=== PATIENT | male | born 1980 | race Caucasian/White ===

== ENCOUNTER 2017-12-25 12:35 | Inpatient (IN) | payer BC ==
[~2017-12-25] VITALS: Ht 165.1 cm; Wt 81.6 kg
--- NOTE | ~2017-12-25 | OP ---
PATIENT NAME: POLI PHILIPPE MEDICAL RECORD: [id number] :76 LOCATION:D. [id number] ADMISSION DATE:12/25/17 SURGEON: AYANA GIBBONS MD DATE OF OPERATION: 12/27/2017 SURGEON: Ayana Gibbons MD PREOPERATIVE DIAGNOSIS: Right lower extremity cellulitis and abscess. POSTOPERATIVE DIAGNOSIS: Right lower extremity cellulitis and abscess. PROCEDURE PERFORMED: Incision and drainage of multiloculated complex abscess, 10 x 6 x 4 cm. ANESTHESIA: MAC. COMPLICATIONS: None. SPECIMENS: Anaerobic and aerobic cultures. WOUND CLASS: Grossly contaminated. ESTIMATED BLOOD LOSS: Minimal. OPERATIVE COURSE: After consent was obtained, the patient was taken to the operating room and placed in supine position on the operating table. Timeout was taken to confirm the correct patient and procedure. Anesthesia was provided. The right lower extremity was prepped and draped in typical sterile fashion. Local anesthetic was administered over the area of fluctuance. The skin was excised approximately 6 cm with a 15 blade scalpel. Immediately upon that, approximately 150 cc of purulent material was expressed from the wound. Anaerobic and aerobic cultures were taken and sent for microbiology. Using blunt finger dissection, all loculations were taken down with blunt dissection. The abscess cavity was a total of 10 cm in length, 6 cm in width and 4 cm in depth. The wound was copiously irrigated with saline. Once clean, the wound was packed with Kerlix gauze soaked in Betadine and peroxide. Sterile gauze dressings were placed over the packing. At the end of the case, all needle and instrument counts were correct. No complications occurred. The patient was transferred to PACU and recovery in satisfactory condition. TRANSINT:[id number] Voice Confirmation ID: [id number] DOCUMENT ID: [id number] AYANA GIBBONS MD at 0757 CC: [id number] DICTATION DATE: 12/27/171911 BUSINESS LEADER: 12/28/17 0218 ADM IN [facility] [address] [place] [address]
[2017-12-25 13:30] LABS: BASOPHILS 0.2 % (0-2); EOSINOPHILS 1.2 % (0-7); HEMATOCRIT 38.9 % (42.0-54.0); HEMOGLOBIN 13.7 g/dL (13.5-17.5); IMMATURE GRANULOCYTES 0.2 % (0-5); LYMPHOCYTES 17.3 % (15-50); MCH 29.3 pg (26.0-34.0); MCHC 35.2 g/dL (31.0-37.0); MCV 83.1 fL (80.0-100.0); MONOCYTES 8.9 % (2-11); NEUTROPHILS 72.2 % (40-80); PLATELET COUNT 318 10x3/uL (130-400); RBC 4.68 10x6/uL (4.20-6.10); RDW 13.3 % (11.5-14.5); WBC 12.2 10x3/uL (4.8-10.8)
[2017-12-25 13:56] LABS: ANION GAP 16.1 mmol/L (8-16); BILIRUBIN - TOTAL 0.7 mg/dL (0.2-1.3); CALCIUM 9.6 mg/dL (8.5-10.1); CARBON DIOXIDE 24.4 mmol/L (21.0-32.0); CREATININE - SERUM 1.2 mg/dL (0.6-1.3); POTASSIUM - SERUM 3.5 mmol/L (3.5-5.1)
[2017-12-25 19:07] LABS: APPEARANCE CLEAR (CLEAR); BILIRUBIN NEGATIVE (NEGATIVE); COLOR YELLOW (YELLOW); GLUCOSE NEGATIVE (NEGATIVE); KETONE NEGATIVE (NEGATIVE); NITRITE NEGATIVE (NEGATIVE); PROTEIN NEGATIVE (NEGATIVE); UROBILINOGEN NORMAL (NORMAL)
[2017-12-25 20:08] VITALS: BP 148/96
[2017-12-26 01:50] VITALS: BP 125/72
[2017-12-26 07:54] LABS: BASOPHILS 0.5 % (0-2); EOSINOPHILS 2.6 % (0-7); HEMATOCRIT 41.6 % (42.0-54.0); IMMATURE GRANULOCYTES 0.1 % (0-5); LYMPHOCYTES 29.3 % (15-50); MCH 28.5 pg (26.0-34.0); MCHC 33.7 g/dL (31.0-37.0); MCV 84.7 fL (80.0-100.0); MEAN PLATELET VOLUME 9.1 fL (7.4-10.4); MONOCYTES 9.5 % (2-11); PLATELET COUNT 288 10x3/uL (130-400); RBC 4.91 10x6/uL (4.20-6.10); RDW 13.4 % (11.5-14.5); WBC 7.7 10x3/uL (4.8-10.8)
[2017-12-26 08:06] LABS: CALCIUM 8.7 mg/dL (8.5-10.1); CARBON DIOXIDE 25.7 mmol/L (21.0-32.0); CHLORIDE - SERUM 102 mmol/L (98-107); GLUCOSE 98 mg/dL (74-106); SODIUM 138 mmol/L (136-145)
[2017-12-26 08:09] LABS: CALC OSMOLALITY 274 mosm/kg (275-300); CREATININE - SERUM 0.8 mg/dL (0.6-1.3); POTASSIUM - SERUM 4.1 mmol/L (3.5-5.1); UREA NITROGEN 10 mg/dL (7-18); eGFR NON AFRICAN AMERICAN > 90 mL/min (90-120)
[2017-12-26 20:00] VITALS: BP 147/81
[2017-12-27] VITALS (7 sets, daily range): BP systolic 123–142; BP diastolic 76–88
[2017-12-27 13:57] LABS: BASOPHILS 0.5 % (0-2); EOSINOPHILS 2.3 % (0-7); HEMATOCRIT 38.7 % (42.0-54.0); HEMOGLOBIN 12.9 g/dL (13.5-17.5); IMMATURE GRANULOCYTES 0.1 % (0-5); LYMPHOCYTES 24.6 % (15-50); MCH 28.9 pg (26.0-34.0); MCHC 33.3 g/dL (31.0-37.0); MONOCYTES 8.3 % (2-11); NEUTROPHILS 64.2 % (40-80); PLATELET COUNT 316 10x3/uL (130-400); RBC 4.46 10x6/uL (4.20-6.10); RDW 13.4 % (11.5-14.5); WBC 8.1 10x3/uL (4.8-10.8)
[2017-12-27 14:01] LABS: MCV 86.8 fL (80.0-100.0)
[2017-12-27 14:16] LABS: ALBUMIN 2.6 g/dL (3.4-5.0); ALKALINE PHOSPHATASE 95 U/L (46-116); ALT (SGPT) 19 U/L (10-68); BILIRUBIN - TOTAL 0.14 mg/dL (0.2-1.3); CALC OSMOLALITY 277 mosm/kg (275-300); CALCIUM 8.6 mg/dL (8.5-10.1); CARBON DIOXIDE 25.9 mmol/L (21.0-32.0); CHLORIDE - SERUM 105 mmol/L (98-107); CREATININE - SERUM 0.8 mg/dL (0.6-1.3); GLUCOSE 115 mg/dL (74-106); POTASSIUM - SERUM 4.1 mmol/L (3.5-5.1); PROTEIN - SERUM 7.2 g/dL (6.4-8.2); SODIUM 140 mmol/L (136-145); UREA NITROGEN 8 mg/dL (7-18); eGFR NON AFRICAN AMERICAN > 90 mL/min (90-120)
[2017-12-28 01:00] VITALS: BP 137/73
[2017-12-28 04:00] VITALS: BP 145/89
[2017-12-28 05:06] LABS: BASOPHILS 0.4 % (0-2); EOSINOPHILS 2.4 % (0-7); HEMATOCRIT 38.3 % (42.0-54.0); HEMOGLOBIN 12.7 g/dL (13.5-17.5); IMMATURE GRANULOCYTES 0.1 % (0-5); LYMPHOCYTES 36.5 % (15-50); MCH 28.7 pg (26.0-34.0); MCHC 33.2 g/dL (31.0-37.0); MCV 86.7 fL (80.0-100.0); MEAN PLATELET VOLUME 9.3 fL (7.4-10.4); MONOCYTES 9.7 % (2-11); NEUTROPHILS 50.9 % (40-80); PLATELET COUNT 337 10x3/uL (130-400); RBC 4.42 10x6/uL (4.20-6.10); RDW 13.4 % (11.5-14.5); WBC 7.4 10x3/uL (4.8-10.8)
[2017-12-28 05:28] LABS: ALBUMIN 2.4 g/dL (3.4-5.0); ALKALINE PHOSPHATASE 89 U/L (46-116); ALT (SGPT) 17 U/L (10-68); BILIRUBIN - TOTAL 0.11 mg/dL (0.2-1.3); CALCIUM 8.5 mg/dL (8.5-10.1); CARBON DIOXIDE 26.1 mmol/L (21.0-32.0); CHLORIDE - SERUM 104 mmol/L (98-107); CREATININE - SERUM 0.8 mg/dL (0.6-1.3); GLUCOSE 100 mg/dL (74-106); POTASSIUM - SERUM 3.9 mmol/L (3.5-5.1); PROTEIN - SERUM 6.8 g/dL (6.4-8.2); SODIUM 139 mmol/L (136-145); eGFR NON AFRICAN AMERICAN > 90 mL/min (90-120)
[2017-12-28 05:34] LABS: CALC OSMOLALITY 276 mosm/kg (275-300); UREA NITROGEN 11 mg/dL (7-18)
[2017-12-28 07:24] VITALS: BP 134/74
[2017-12-28 11:43] VITALS: BP 142/67
[2017-12-28 16:39] VITALS: BP 135/78
[2017-12-28 21:48] VITALS: BP 137/81
[2017-12-29 01:00] VITALS: BP 132/70
[2017-12-29 04:00] VITALS: BP 129/85
[2017-12-29 04:43] LABS: BASOPHILS 0.3 % (0-2); EOSINOPHILS 2.5 % (0-7); HEMOGLOBIN 12.9 g/dL (13.5-17.5); IMMATURE GRANULOCYTES 0.4 % (0-5); LYMPHOCYTES 35.7 % (15-50); MCH 28.8 pg (26.0-34.0); MCHC 33.1 g/dL (31.0-37.0); MCV 87.1 fL (80.0-100.0); MEAN PLATELET VOLUME 8.8 fL (7.4-10.4); MONOCYTES 9.5 % (2-11); NEUTROPHILS 51.6 % (40-80); PLATELET COUNT 373 10x3/uL (130-400); RBC 4.48 10x6/uL (4.20-6.10); RDW 13.2 % (11.5-14.5); WBC 7.6 10x3/uL (4.8-10.8)
[2017-12-29 04:57] LABS: ALBUMIN 2.6 g/dL (3.4-5.0); ALKALINE PHOSPHATASE 91 U/L (46-116); ALT (SGPT) 20 U/L (10-68); CALCIUM 8.8 mg/dL (8.5-10.1); CARBON DIOXIDE 29.8 mmol/L (21.0-32.0); CHLORIDE - SERUM 106 mmol/L (98-107); GLUCOSE 97 mg/dL (74-106); SODIUM 140 mmol/L (136-145); eGFR NON AFRICAN AMERICAN 88 mL/min (90-120)
[2017-12-29 05:10] LABS: CALC OSMOLALITY 279 mosm/kg (275-300); POTASSIUM - SERUM 4.6 mmol/L (3.5-5.1); UREA NITROGEN 14 mg/dL (7-18)
[2017-12-29 08:36] VITALS: BP 127/76
[2017-12-29 10:21] VITALS: Ht 165.1 cm; Wt 81.6 kg
[2017-12-29] MEDS ORDERED: HYDROCODON-ACE1 EAC7 PO (10:47)
[2017-12-29 11:32] VITALS: BP 134/88
[2017-12-29] MEDS ORDERED: BACTRIM DS TABL1 TAB PO (11:35)
== END 2017-12-29 14:58 | disposition home health service (06) | DRG 603 ==
LOC: D.ER 12:35 → D.M2 15:31 → D.EDHOLD 15:31 → D.M2 12-26 19:45
PROVIDERS: Emergency Medicine; Family Medicine; Physician Assistant; Surgery
PROC: 0H9KXZZ Drainage of Right Lower Leg Skin, External Approach (ICD-10-PCS; principal; 2017-12-27 16:00)
DX: L03.115 Cellulitis of right lower limb (principal); T24.001D Burn of unspecified degree of unspecified site of right lower limb, except ankle and foot, subsequent encounter; I10 Essential (primary) hypertension; R56.9 Unspecified convulsions; W22.10XD Striking against or struck by unspecified automobile airbag, subsequent encounter; V49.9XXD Car occupant (driver) (passenger) injured in unspecified traffic accident, subsequent encounter; Z72.0 Tobacco use